=== PATIENT | male | born 1940 | race Caucasian/White ===

== ENCOUNTER → 2016-10-21 | Outpatient (CLI) | payer MEDICARE ==
[~2016-10-21] MED LIST: ALBUTEROL17 G1 INH; ASPIRIN81 M1 PO; ASPIRIN81 M2 PO; ASTELIN137 MCG; BROVANA15 MCG/2 M IH; FINASTERIDE5 MG PO; FLEXERIL10 MG PO; FLOMAX0.4 M1 PO; FLONASE 0.05% N16 G1; LISINOPRIL10 MG PO; LISINOPRIL20 MG PO; PERCOCET PO; PRAVACHOL10 MG PO; PRESERVISION A1 EAC1 PO; PULMICORT0.5 MG/2 M IH; SIMVASTATIN20 MG PO; TIMOPTIC 0.5% OP5 M1 OU; VICODIN 5/1 TAB 5/50 PO; VITAMIN E100 UNIT PO; ZINC50 M1 PO; ZOFRAN PO; ZYLOPRIM100 MG PO
--- NOTE | ~2016-10-21 | CT57 ---
[facility] A Service of [facility] [place] RADIOLOGY TEXT RESULTS PATIENT: MADELEINE RUSSELL LOCATION: [facility] : 42 UNIT #: [id number] AGE: [address]: Oskar Costa MD SEX: M ORDER DR: [id number] [facility]. [place], [place] [address] [id number] O MR#: [id number] Acc #: [id number] NAME: MADELEINE RUSSELL : 1940 SEX: M STUDY DATE/TIME: 10/21/2016 9:22 UNIT: US ROOM: STUDY DESCRIPTION: CT Chest Wo Cont Attending Physician: Osakr Costa M.D. Referring Physician: Oskar Costa M.D. Ordering Physician: Oskar Costa M.D. Primary Care Physician: Oskar Costa M.D. MEDICAL IMAGING REPORT This report is preliminary unless electronic signature is present EXAM CT scan of the chest without contrast. INDICATIONS Followup aortic aneurysm. TECHNIQUE CT of the chest was performed without contrast. Coronal and sagittal reformatted images were obtained. This CT exam was performed with one or more of the following radiation dose reduction techniques: automatic exposure control, adjustment of mA and/or kV according to patient size, and iterative reconstruction. COMPARISON Comparison is made with 09/11/2015. FINDINGS Stable mild dilatation of the ascending aorta measuring about 3.9 cm in greatest dimension. The descending thoracic aorta is within normal limits. Coronary artery calcification. No lymphadenopathy or pleural effusion. There is bilateral lower lobe linear scarring. Calcified granuloma right lower lobe. No airspace consolidation. No suspicious pulmonary nodule. Limited imaging of the upper abdomen is unremarkable. The bone windows are unremarkable. IMPRESSION Stable mild dilatation of the ascending aorta. Dictated by... Jesus Dickerson M.D. [facility] A Service of [facility] [place] RADIOLOGY TEXT RESULTS PATIENT: MADELEINE RUSSELL LOCATION: [facility] : 42 UNIT #: [id number] AGE: [address]: Oskar Costa MD SEX: M ORDER DR: THIS IS AN ELECTRONICALLY VERIFIED REPORT Jesus Dickerson M.D. at 10/24/2016 12:15 PM EDWARD/bean TD: 10/21/2016 22:00 JOB #: [id number] MEDICAL IMAGING REPORT Page 1 of 1 COPY
--- NOTE | ~2016-10-21 | US10 ---
[id number] [facility] [address] [place] [address] [place], [place] [address] [id number] O MR#: [id number] Acc #: [id number] NAME: MADELEINE RUSSELL : 1940 SEX: M STUDY DATE/TIME: 10/21/2016 9:03 UNIT: CGUS ROOM: STUDY DESCRIPTION: US Aorta Complete Attending Physician: Oskar Costa M.D. Referring Physician: Oskar Costa M.D. Ordering Physician: Oskar Costa M.D. Primary Care Physician: Oskar Costa M.D. MEDICAL IMAGING REPORT This report is preliminary unless electronic signature is present EXAM Ultrasound of the abdominal aorta 10/21/2016 INDICATIONS Tobacco abuse 20 years, hyperlipidemia. HISTORY Abdominal aortic aneurysm. TECHNIQUE Ewlls-scale color Doppler and spectral analysis of the abdominal aorta was performed and compared with 09/11/2015. FINDINGS The proximal aorta measures up to about 2.9 cm, the mid aorta up to about 2.4 cm, and the distal aorta up to about 3.4 cm. Findings are similar to the prior study. Appropriate waveforms are present in the aorta. No evidence of aneurysmal dilatation of either iliac artery. There is atherosclerotic disease. IMPRESSION 1. Aneurysmal dilatation of the distal abdominal aorta up to about 3.4 cm. This is similar to the prior study for technical factors. 2. Atherosclerotic disease. Dictated by... Adriel Justice M.D. THIS IS AN ELECTRONICALLY VERIFIED REPORT Adriel Justice M.D. at 10/24/2016 3:27 PM Giulia TD: 10/21/2016 22:45 JOB #: [id number] MEDICAL IMAGING REPORT Page 1 of 1 COPY
== END | disposition home or self-care (01) ==
LOC: CGUS 08:37
DX: I71.4 Abdominal aortic aneurysm, without rupture (principal); I71.2 Thoracic aortic aneurysm, without rupture; I70.0 Atherosclerosis of aorta
CPT/HCPCS: 71250; 76770